=== PATIENT | female | born 1945 | race Caucasian/White ===

== ENCOUNTER → 2017-03-07 | Outpatient (CLI) | payer MEDICARE, BC ==
--- NOTE | 2017-03-07 09:57 | RADIOLOGY REPORT (SQ) ---
EXAM DESCRIPTION: CHEST PA/LAT COMPLETED DATE/TIME: 03/07/2017 9:36 am REASON FOR STUDY: HX OF BREAST CA COMPARISON: 03/08/2016, 02/16/2015 chest films EXAM PARAMETERS: NUMBER OF VIEWS: two views TECHNIQUE: Digital Frontal and Lateral radiographic views of the chest acquired. RADIATION DOSE: NA LIMITATIONS: none FINDINGS: LUNGS AND PLEURA: No opacities, masses or pneumothorax. No pleural effusion. MEDIASTINUM AND HILAR STRUCTURES: No masses or contour abnormalities. HEART AND VASCULAR STRUCTURES: Heart normal size. No evidence for failure. BONES: Osteopenic. No gross bony metastatic lesions HARDWARE: Surgical clips right axilla post right mastectomy. OTHER: No other significant finding. IMPRESSION: Old right mastectomy. Otherwise unremarkable study TECHNICAL DOCUMENTATION: JOB ID: [id number]- All Rights Reserved
--- NOTE | 2017-03-07 10:16 | WOMENS IMAGING REPORT ---
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 LIMITATIONS: None. FINDINGS: LUMBAR SPINE: The bone mineral density (BMD) measured from L1-L4 in the AP projection correlates with a T-score of +0.5, which is normal as defined by the World Health Organization. Today's results represents a 5% i ncrease in bone density compared to 2015. This represents a 13% increase in bone density compared to initial imaging in 2004. Please note that the AP view does include vertebral body endplates and fac et joints which can exhibit bony sclerosis HIP: The bone mineral density (BMD) measured in the left femoral neck at the hip correlates with a T-score of -0.9, which is osteopenic as defined by the World Health Organization. This represents a 4% decr ease in bone density compared to 2015. IMPRESSION: 1. LUMBAR SPINE: Normal 2. HIP: Osteopenic COMMENT: The World Health Organization defines low BMD as follows: T-score: Normal: Greater than -1.0 Osteopenia: Between -1.0 and -2.5 Osteoporosis: Less than -2.5 without fractures Established osteoporosis: Less than -2.5 with fractures In general, you may wish to consider: Diagnosis Treatment Follow-up DEXA Normal BMD Prevention 2-3 years Osteopenia Prevention/Therapy 1-2 years Osteoporosis Therapy Yearly TECHNICAL DOCUMENTATION: JOB ID: [id number]- All Rights Reserved
== END ==
LOC: WI 08:43
PROVIDERS: ATTEND Internal Medicine Medical Oncology
DX: Z85.3 Personal history of malignant neoplasm of breast (principal); M81.0 Age-related osteoporosis without current pathological fracture; Z90.11 Acquired absence of right breast and nipple
CPT/HCPCS: 71020; 77080

== ENCOUNTER → 2018-03-06 | Outpatient (CLI) | payer MEDICARE, BC ==
--- NOTE | 2018-03-06 10:40 | RADIOLOGY REPORT (SQ) ---
EXAM DESCRIPTION: CHEST PA/LATERAL COMPLETED DATE/TIME: 03/06/2018 10:29 am REASON FOR STUDY: PERSONAL HISTORY OF MALIGNANT NEOPLASM OF BREAST COMPARISON: Chest films 03/07/2017, 03/08/2016, 02/16/2015 EXAM PARAMETERS: NUMBER OF VIEWS: two views TECHNIQUE: Digital Frontal and Lateral radiographic views of the chest acquired. RADIATION DOSE: NA LIMITATIONS: none FINDINGS: LUNGS AND PLEURA: Minimal bandlike left basilar atelectasis. No fluffy alveolar infiltrat es worrisome for edema or pneumonia. No pleural effusion. No pneumothorax. MEDIASTINUM AND HILAR STRUCTURES: No masses or contour abnormalities. HEART AND VASCULAR STRUCTURES: Heart normal size. No evidence for failure. BONES: Bones are osteopenic without thoracic compression deformity. HARDWARE: Old right axillary surgical clips OTHER: Old right mastectomy IMPRESSION: Minimal left basilar atelectasis. Old right mastectomy TECHNICAL DOCUMENTATION: JOB ID: [id number] [employer]- All Rights Reserved Reading location - IP/workstation name: [email or web address]
== END ==
LOC: RAD 09:50
PROVIDERS: ATTEND Internal Medicine Medical Oncology
DX: J98.11 Atelectasis (principal); Z85.3 Personal history of malignant neoplasm of breast; Z90.11 Acquired absence of right breast and nipple
CPT/HCPCS: 71046